=== PATIENT | female | born 1965 | race Caucasian/White ===

== ENCOUNTER 2018-12-11 18:29 | Emergency (ER) | payer OTHER ==
[2018-12-11] MEDS ORDERED: Ketorolac 60 MG/2 ML SDV IM ONE (18:53)
--- NOTE | 2018-12-11 19:09 | EDM.PDOC ---
ED HPI GENERAL MEDICAL PROBLEM - General Chief Complaint: Lower Extremity Injury/Pain Stated Complaint: KNEE PAIN Time Seen by Provider: 12/11/18 18:32 Source of Information: Reports: Patient History Limitations: Reports: No Limitations - History of Present Illness INITIAL COMMENTS - FREE TEXT/NARRATIVE: HISTORY AND PHYSICAL: History of present illness: Patient is a 53-year-old male presents to the ED today with concern of right knee pain 4 days. Patient states she has a history of osteo arthritis in the knee as well as always have an underlying pain in the knee. Patient states night she woke up in the middle the night with 9 out of 10 knee pain. Patient denies any injury or trauma to the knee. Patient denies any swelling, redness, or obvious deformity of the knee. Patient has not taken anything for her symptoms. Patient denies any other symptoms at this time. Patient denies fever, chills, chest pain, shortness of breath, or cough. Denies headache, neck stiff ness, change in vision, syncope, or near syncope. Denies nausea, vomiting, abdominal pain, diarrhea, constipation, or dysuria. Has not noted any blood in urine or stool. Patient has been eating and drinking appropriately. Review of systems: As per history of present illness and below otherwise all systems reviewed and negative. Past medical history: As per history of present illness and as reviewed below otherwise noncontributory. Surgical history: As per history of present illness and as reviewed below otherwise noncontributory. Social history: See social history for further information Family history: As per history of present illness and as reviewed below otherwise noncontributory. Physical exam: General: Patient is alert, oriented, and in no acute distress. Patient sitting comfortably on exam table. HEENT: Atraumatic, normocephalic, pupils equal and reactive bilaterally, negative for conjunctival pallor or scleral icterus, mucous membranes moist, TMs normal bilaterally, throat clear, neck supple, nontender, trachea midline. No drooling or trismus noted. No meningeal signs. No hot potato voice noted. Lungs: Clear to auscultation, breath sounds equal bilaterally, chest nontender. Heart: S1S2, regular rate and rhythm without overt murmur Abdomen: Soft, nondistended, nontender. Negative for masses or hepatosplenomegaly. Negative for costovertebral tenderness. Pelvis: Stable nontender. Genitourinary: Deferred. Rectal: Deferred. Skin: Intact, warm, dry. No lesions or rashes noted. Extremities: Atraumatic, negative for cords or calf pain. Neurovascular unremarkable. Patient has full range of motion of right hip ankle and digits of the right extremity. Dorsalis pedis and posterior tibial pulses grossly intact with capillary refill less than 2 seconds. No obvious deformity of the right knee. No redness or edema of the knee. Range of motion of the knee is limited due to pain and exam of knee limited due to body habits. Patient does have pain with both varus and valgus stress of the knee. Neuro: Awake, alert, oriented. Cranial nerves II through XII unremarkable. Cerebellum unremarkable. Motor and sensory unremarkable throughout. Exam nonfocal. Notes: Discussed the importance for follow-up with an orthopedic provider or her primary care provider. Voices understanding and is agreeable to plan of care. Denies any further questions or concerns at this time. Diagnostics: Knee x-ray Therapeutics: Toradol, knee splint and crutches Prescription: Diclofenac Impression: Right knee pain, unspecified Plan: 1. Rest, ice, elevate the affected extremity. You can apply ice 15 minutes on, 15 minutes off. 2. Tylenol as directed for pain management or discomfort. Take medication as prescribed and do not take with Tylenol or Aleve. 3. Follow up with the Orthopedic provider or primary care provider as discussed. Return to the ED as needed and as discussed. Definitive disposition and diagnosis as appropriate pending reevaluation and review of above. Right Knee Pain Score (Numeric/FACES): 8 - Related Data Allergies Allergy/AdvReac Type Severity Reaction Status Date / Time adhesive Allergy Swelling Verified 12/11/18 18:42 Home Meds: Home Meds Aspirin 81 mg PO DAILY 12/11/18 [History] Nebivolol HCl [Bystolic] 10 mg PO DAILY 12/11/18 [History] Past Medical History HEENT History: Reports: None Cardiovascular History: Reports: Hypertension Respiratory History: Reports: None Gastrointestinal History: Reports: None Genitourinary History: Reports: None [employer] History: Reports: Musculoskeletal History: Reports: Osteoarthritis Neurological History: Reports: None Psychiatric History: Reports: None Endocrine/Metabolic History: Reports: None Hematologic History: Reports: None Immunologic History: Reports: None Oncologic (Cancer) History: Reports: Other (See Below) Other Oncologic History: melanoma on R arm Dermatologic History: Reports: Melanoma Other Dermatologic History: melanoma removed on R arm - Infectious Disease History Infectious Disease History: Reports: Chicken Pox - Past Surgical History Head Surgeries/Procedures: Reports: None Social & Family History - Tobacco Use Smoking Status *Q: Former Smoker Used Tobacco, but Quit: Yes Month/Year Tobacco Last Used: 1994 - Caffeine Use Caffeine Use: Reports: Coffee, Energy Drinks, Soda, Tea - Recreational Drug Use Recreational Drug Use: No Review of Systems - Review of Systems Review Of Systems: ROS reveals no pertinent complaints other than HPI. ED EXAM, GENERAL - Physical Exam Exam: See Below (see dictation) Course - Vital Signs Last Recorded V/S: Last Vital Signs Temp 36.5 C 12/11/18 18:39 Pulse 90 12/11/18 18:39 Resp BP 180/86 H 12/11/18 18:39 Pulse Ox 95 12/11/18 18:39 - Orders/Labs/Meds Orders: Active Orders 24 hr Category Date Time Status DME for Discharge [COMM] Stat Oth 12/11/18 19:11 Ordered Meds: Medications Discontinued Medications Generic Name Dose Route Start Last Admin Trade Name Freq PRN Reason Stop Dose Admin Ketorolac Tromethamine 60 mg 12/11/18 18:53 12/11/18 19:12 Toradol IM 12/11/18 18:54 60 mg ONETIME ONE Administration Departure - Departure Time of Disposition: 20:00 Disposition: Home, Self-Care 01 Clinical Impression: Right knee pain Qualifiers: Chronicity: acute Qualified Code(s): M25.561 - Pain in right knee - Discharge Information Referrals: Chely Williamson DO [Primary Care Provider] - Forms: ED Department Discharge Additional Instructions: The following information is given to patients seen in the emergency department who are being discharged to home. This information is to outline your options for follow-up care. We provide all patients seen in our emergency department with a follow-up referral. The need for follow-up, as well as the timing and circumstances, are variable depending upon the specifics of your emergency department visit. If you don't have a primary care physician on staff, we will provide you with a referral. We always advise you to contact your personal physician following an emergency department visit to inform them of the circumstance of the visit and for follow-up with them and/or the need for any referrals to a consulting specialist. The emergency department will also refer you to a specialist when appropriate. This referral assures that you have the opportunity for follow-up care with a specialist. All of these measure are taken in an effort to provide you with optimal care, which includes your follow-up. Under all circumstances we always encourage you to contact your private physician who remains a resource for coordinating your care. When calling for follow-up care, please make the office aware that this follow-up is from your recent emergency room visit. If for any reason you are refused follow-up, please contact the [facility] Emergency Department at and asked to speak to the emergency department charge nurse. [facility] [address] [place] [id number] [address] [facility] [address] [place] [address], [address] [place] [address] 1. Rest, ice, elevate the affected extremity. You can apply ice 15 minutes on, 15 minutes off. 2. Tylenol as directed for pain management or discomfort. Take medication as prescribed and do not take with Tylenol or Aleve. 3. Follow up with the Orthopedic provider or primary care provider as discussed. Return to the ED as needed and as discussed. - My Orders Last 24 Hours: My Active Orders 12/11/18 19:11 DME for Discharge [COMM] Stat - Assessment/Plan Last 24 Hours: My Active Orders 12/11/18 19:11 DME for Discharge [COMM] Stat
--- NOTE | 2018-12-11 19:57 | CR ---
INDICATION: Right knee pain TECHNIQUE: X-ray right knee, three views COMPARISON: None available FINDINGS: Evaluation is somewhat limited due to overlapping soft tissue. There are moderate osteoarthritic changes of the right knee including joint space narrowing, most pronounced within the medial compartment. Marginal osteophytes are present within all 3 compartments. There is a well corticated fragment which projects over the joint line, best seen on the lateral view. This measures approximately 1.3 cm. Negative for acute fracture or dislocation. No knee joint effusion is seen. Negative for radiopaque foreign body. IMPRESSION: 1. Moderate osteoarthritic changes of the right knee, most pronounced within the medial compartment. 2. Osseous fragment projecting over the joint line, may represent an intra-articular loose body. 3. Negative for acute fracture or dislocation. Dictated by Sujey Nava MD @ Dec 11 2018 7:53PM Signed by Dr. Sujey Nava @ Dec 11 2018 7:55PM
== END 2018-12-11 20:25 | disposition home or self-care (01) ==
LOC: MW.ED 18:29
DX: M25.561 Pain in right knee (principal); I10 Essential (primary) hypertension; Z79.82 Long term (current) use of aspirin; Z79.899 Other long term (current) drug therapy; Z91.048 Other nonmedicinal substance allergy status; Z87.891 Personal history of nicotine dependence
CPT/HCPCS: 73562; 96372; 99283; J1885